=== PATIENT | male | born 1960 | race Caucasian/White ===

== ENCOUNTER 2020-06-03 18:31 | Observation (INO) ==
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
[2020-06-03] MEDS ORDERED: SODIUM CHLORIDE 0.9% 1000ML 1,000 ML IV ONE (18:53)
--- NOTE | 2020-06-03 19:06 | XRay Report ---
XR chest 1V portable CLINICAL HISTORY: Atypical chest pain COMPARISON STUDY: No previous studies for comparison. FINDINGS: The heart is borderline enlarged. There is no failure. There is no focal pulmonary consolid ation. There are old left-sided rib fractures. There is elevation blunting of the lateral aspect of t he left hemidiaphragm, likely secondary to pleural scarring. Increased density within the lateral asp ect of the left hemithorax likely relates to underlying pleural scarring. IMPRESSION: 1. Old left-sided rib fractures with presumed left-sided pleural scarring. 2. No active disease in the chest. ACT 112: Negative or not required by law. Electronically signed by: Jim Quiroga M.D. 06/03/2020 7:05 PM
[2020-06-03 19:25] LABS: Basophils # (auto) 0.03 K/uL (0-0.2); Basophils % (auto) 0.3 %; Eosinophils # (auto) 0.06 K/uL (0-0.5); Eosinophils % (auto) 0.6 %; Hematocrit (blood only) 43.1 % (42-52); Hemoglobin 15.1 g/dL (14.0-18.0); Immature Granulocytes # (auto) 0.03 K/uL (0.00-0.02); Immature Granulocytes % (auto) 0.3 %; Lymphocytes # (auto) 2.07 K/uL (1.2-3.4); Lymphocytes % (auto) 20.6 %; Mean Corpuscular Hemoglobin 31.9 pg (25-34); Mean Corpuscular Volume 91.1 fL (80-100); Mean Platelet Volume 10.9 fL (7.4-10.4); Monocytes # (auto) 0.41 K/uL (0.11-0.59); Monocytes % (auto) 4.1 %; Neutrophils # (auto) 7.43 K/uL (1.4-6.5); Neutrophils % (auto) 74.1 %; Platelet Count 236 K/uL (130-400); RDW Standard Deviation 43.4 fL (36.4-46.3); Red Blood Count 4.73 M/uL (4.7-6.1); White Blood Count 10.03 K/uL (4.8-10.8)
[2020-06-03 19:26] LABS: D Dimer 370 ug/L FEU (0-500); Partial Thromboplastin Time 27.4 Seconds (21.0-31.0); Prothrombin Time 10.5 Seconds (9.0-12.0)
[2020-06-03 19:30] LABS: Alanine Aminotransferase 31 U/L (12-78); Albumin Level 3.9 gm/dl (3.4-5.0); Aspartate Aminotransferase 19 U/L (15-37); BUN Creatinine Ratio 9.9 (10-20); Blood Urea Nitrogen 12 mg/dl (7-18); Carbon Dioxide 22 mmol/L (21-32); Chloride 107 mmol/L (98-107); Creatinine Clr Calc Pharmacy 87.8 ml/min; Est GFR (Non-African American) 66.5; Glucose 120 mg/dl (70-99); Lipase 145 U/L (73-393); Potassium 3.3 mmol/L (3.5-5.1); Sodium 140 mmol/L (136-145)
[2020-06-03 19:35] LABS: Albumin Globulin Ratio 1.1 (0.9-2); Alkaline Phosphatase 74 U/L (45-117); Bilirubin,Total 0.5 mg/dl (0.2-1); Globulin 3.6 gm/dl (2.5-4.0); Total Protein 7.5 gm/dl (6.4-8.2); Troponin I < 0.015 ng/ml (0-0.045)
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
[2020-06-03] MEDS ORDERED: OPTIRAY 320 125ml IV ONE (22:19)
[2020-06-03] MEDS ORDERED: ACETAMINOPHEN 325 MG TAB PO PRN (23:35)
[2020-06-04] MEDS: POTASSIUM CHLORIDE CRTAB 20 MEQ TABCR PO SCH ×3 (00:06→07:28)
--- NOTE | 2020-06-04 04:37 | Billing Data ---
Date of Service June 04, 2020 Coding Level of Care Code 61008 OBS Care - Level 3
[2020-06-04 06:26] LABS: Basophils # (auto) 0.04 K/uL (0-0.2); Basophils % (auto) 0.6 %; Eosinophils # (auto) 0.08 K/uL (0-0.5); Eosinophils % (auto) 1.3 %; Hematocrit (blood only) 41.3 % (42-52); Hemoglobin 14.5 g/dL (14.0-18.0); Immature Granulocytes # (auto) 0.01 K/uL (0.00-0.02); Immature Granulocytes % (auto) 0.2 %; Lymphocytes # (auto) 2.44 K/uL (1.2-3.4); Mean Corpuscular Hemoglobin 31.7 pg (25-34); Mean Corpuscular Hgb Conc 35.1 g/dL (32-36); Mean Corpuscular Volume 90.4 fL (80-100); Monocytes # (auto) 0.45 K/uL (0.11-0.59); Monocytes % (auto) 7.2 %; Neutrophils # (auto) 3.23 K/uL (1.4-6.5); Neutrophils % (auto) 51.7 %; Platelet Count 209 K/uL (130-400); RDW Coefficient of Variation 13.1 % (11.5-14.5); RDW Standard Deviation 43.3 fL (36.4-46.3); Red Blood Count 4.57 M/uL (4.7-6.1); White Blood Count 6.25 K/uL (4.8-10.8)
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
[2020-06-04 07:03] LABS: Albumin Level 3.3 gm/dl (3.4-5.0); BUN Creatinine Ratio 9.7 (10-20); Bilirubin,Total 0.9 mg/dl (0.2-1); Creatinine Clr Calc Pharmacy 113.2 ml/min; Est GFR (Non-African American) 93.2; Globulin 3.3 gm/dl (2.5-4.0); Total Protein 6.6 gm/dl (6.4-8.2)
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
--- NOTE | 2020-06-04 09:40 | Electrocardiogram Report ---
Test Reason : Blood Pressure : / mmHG Vent. Rate : 085 BPM Atrial Rate : 085 BPM P-R Int : 176 ms QRS Dur : 104 ms QT Int : 402 ms P-R-T Axes : 044 -23 052 degrees QTc Int : 478 ms Sinus rhythm with sinus arrhythmia with occasional Premature ventricular complexes Septal infarct , age undetermined Abnormal ECG No previous ECGs available Confirmed by Dennys Mcdowell ([id number]) on 06/04/2020 9:39:54 AM Referred By: REFERRED SELF Confirmed By:Dennys Mcdowell
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
--- NOTE | 2020-06-04 12:50 | XCELERA ---
[id number] \\[id number]
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
== END 2020-06-04 17:16 | disposition home or self-care (01) ==
LOC: ED 18:31 → SUATTDRO 22:37 → INTOOBSV 22:37 → 2N 22:37